=== PATIENT | female | born 1990 | race American Indian/Alaskan Native ===

== ENCOUNTER 2016-09-21 16:21 | Emergency (ER) | payer OTHER ==
[2016-09-21 16:29] VITALS: BP 110/69; PULSE 88; RESP 16; TEMP 98.1; O2SAT 100
--- NOTE | 2016-09-21 16:38 | C.PDOC ---
History Of Present Illness 25 yr old female presents to the ER requesting treatment for gonorrhea exposure. Patient states positive known exposure and states she is also . Denies fever, nausea, vomiting, abdominal pain, dysuria, vaginal bleeding or discharge. REQUESTING TX FOR GONORRHEA EXPOSURE. PS +KNOWN EXPOSURE. ASYMPT. +KNOWN PREG EXAM NEG Time Seen by Provider: 09/21/16 16:34 Chief Complaint (Nursing): Female Genitourinary History Per: Patient History/Exam Limitations: no limitations Onset/Duration Of Symptoms: Unknown Current Symptoms Are (Timing): Still Present Past Medical History Reviewed: Historical Data, Nursing Documentation, Vital Signs Vital Signs: Last Vital Signs Temp 98.1 F 09/21/16 16:26 Pulse 88 09/21/16 16:26 Resp 16 09/21/16 16:26 BP 110/69 09/21/16 16:26 Pulse Ox 100 09/21/16 16:42 Family History: States: No Known Family Hx - Social History Hx Alcohol Use: No Hx Substance Use: No - Immunization History Hx Tetanus Toxoid Vaccination: No Hx Influenza Vaccination: No Hx Pneumococcal Vaccination: No Review Of Systems Except As Marked, All Systems Reviewed And Found Negative. Constitutional: Negative for: Fever Gastrointestinal: Negative for: Nausea, Vomiting, Abdominal Pain Genitourinary: Negative for: Dysuria, Vaginal Discharge, Vaginal Bleeding Physical Exam - Physical Exam Appears: Non-toxic, No Acute Distress Skin: Warm, Dry, No Rash Head: Atraumatic, Normacephalic Chest: Symmetrical, No Tenderness Cardiovascular: Rhythm Regular, No Murmur Respiratory: Normal Breath Sounds, No Rales, No Rhonchi, No Stridor, No Wheezing Neurological/Psych: Oriented x3, Normal Speech, Normal Motor ED Course And Treatment O2 Sat by Pulse Oximetry: 100 (RA ) Pulse Ox Interpretation: Normal Medical Decision Making Medical Decision Making: PLAN: * Chlamydia GC * POC * Urinalysis * Rocephin IM Disposition Counseled Patient/Family Regarding: Studies Performed, Diagnosis, Need For Followup, Rx Given - Disposition Referrals: YOUR,OBGYN [Other] Disposition: HOME/ ROUTINE Disposition Time: 16:42 Condition: IMPROVED Prescriptions: Azithromycin 1 tab PO DAILY #4 tab Instructions: Sexually Transmitted Diseases (ED) Forms: [employer] (Frisian) - Clinical Impression Clinical Impression: Concern about STD in female without diagnosis - Scribe Statement The provider has reviewed the documentation as recorded by the Cheryl Christian Provider Attestation: All medical record entries made by the Cheryl were at my direction and personally dictated by me. I have reviewed the chart and agree that the record accurately reflects my personal performance of the history, physical exam, medical decision making, and the department course for this patient. I have also personally directed, reviewed, and agree with the discharge instructions and disposition.
[2016-09-21] MEDS ORDERED: cefTRIAXone (Rocephin) 250 mg Inj IM STA (16:40)
[2016-09-21 16:54] LABS: SQUAMOUS EPITHIAL 4 /hpf (0-5); URINE AMORPHOUS SEDIMENT FEW /ul (<OCC); URINE BACTERIA RARE (<OCC); URINE BILIRUBIN NEGATIVE (NEGATIVE); URINE BLOOD NEGATIVE (NEGATIVE); URINE CLARITY Hazy (Clear); URINE COLOR Yellow (YELLOW); URINE GLUCOSE (UA) NORMAL (Normal); URINE LEUKOCYTE ESTERASE NEG Leu/uL (Negative); URINE NITRATE NEGATIVE (NEGATIVE); URINE PROTEIN NEGATIVE (NEGATIVE)
== END 2016-09-21 16:56 | disposition home or self-care (01) ==
LOC: C.ER 16:21
DX: Z71.1 Person with feared health complaint in whom no diagnosis is made (principal)

== ENCOUNTER 2016-09-30 17:14 | Emergency (ER) | payer OTHER ==
[2016-09-30 17:23] VITALS: BP 96/61; PULSE 78; RESP 18; TEMP 99; O2SAT 98
--- NOTE | 2016-09-30 18:13 | C.PDOC ---
History Of Present Illness 25 yr old female called back to ER for (+) chlamydia result. Patient was seen in 09/21 for "gonorrhea exposure". She was given IM rocpehin in ED and Rx for Azithromycin PO. Patient did not fail/take Rx for azithromycin. Result from GC test was (+) for chlamydia. Patient denies current pelvic pain, fever, discharge, nausea/vomiting/diarrhea, dysuria/hematuria. Time Seen by Provider: 09/30/16 18:04 Chief Complaint (Nursing): Female Genitourinary History Per: Patient History/Exam Limitations: no limitations Associated Symptoms: denies: Fever, Chills, Nausea, Vomiting, Diarrhea, Urinary Symptoms Abnormal Vaginal Bleeding: No Past Medical History Reviewed: Historical Data, Nursing Documentation, Vital Signs Vital Signs: Last Vital Signs Temp 99 F 09/30/16 17:21 Pulse 78 09/30/16 17:21 Resp 18 09/30/16 17:21 BP 96/61 L 09/30/16 17:21 Pulse Ox 98 09/30/16 19:05 Family History: States: No Known Family Hx - Social History Hx Alcohol Use: No Hx Substance Use: No - Immunization History Hx Tetanus Toxoid Vaccination: No Hx Influenza Vaccination: No Hx Pneumococcal Vaccination: No Review Of Systems Except As Marked, All Systems Reviewed And Found Negative. Constitutional: Negative for: Fever, Chills Cardiovascular: Negative for: Chest Pain Respiratory: Negative for: Shortness of Breath Gastrointestinal: Negative for: Nausea, Vomiting, Abdominal Pain Genitourinary: Negative for: Dysuria, Vaginal Discharge, Vaginal Bleeding Physical Exam - Physical Exam Appears: Well, Non-toxic, No Acute Distress Skin: Normal Color, Warm, Dry Cardiovascular: Rhythm Regular Respiratory: Normal Breath Sounds, No Rales, No Rhonchi, No Wheezing Gastrointestinal/Abdominal: Normal Exam, Bowel Sounds, Soft, No Tenderness Neurological/Psych: Oriented x3, Normal Motor ED Course And Treatment O2 Sat by Pulse Oximetry: 98 (RA ) Pulse Ox Interpretation: Normal Progress Note: PLAN: Patient reassured she could have just filled her Rx and taken medication. However PO Azithromycin 1000mg given in ED. Patient instructed to follow up with ob.[facility] within 1 week, and to have any sexual partners tested/treated. She understands she should return to ER if she has any concerning symptoms. Disposition Counseled Patient/Family Regarding: Diagnosis, Need For Followup - Disposition Referrals: [facility] [Outside] Disposition: HOME/ ROUTINE Disposition Time: 18:20 Condition: STABLE Additional Instructions: FOLLOW UP WITH YOUR DOCTOR/CLINIC IN 1-2 DAYS REFRAIN FROM SEX X 1 WEEK HAVE SEXUAL PARTNER(S) TESTED/TREATED RETURN TO ER IF YOU HAVE ANY CONCERNING SYMPTOMS Instructions: Chlamydia (ED) Forms: [employer] (Bulgarian) Print Language: BULGARIAN - Clinical Impression Clinical Impression: Chlamydia - Scribe Statement The provider has reviewed the documentation as recorded by the Cheryl Christian Provider Attestation: All medical record entries made by the Cheryl were at my direction and personally dictated by me. I have reviewed the chart and agree that the record accurately reflects my personal performance of the history, physical exam, medical decision making, and the department course for this patient. I have also personally directed, reviewed, and agree with the discharge instructions and disposition.
== END 2016-09-30 18:20 | disposition home or self-care (01) ==
LOC: C.ER 17:14
DX: A74.9 Chlamydial infection, unspecified (principal)